=== PATIENT | male | born 1945 | race Caucasian/White ===

== ENCOUNTER → 2020-08-16 | Outpatient (CLI) | payer OTHER | LOC: MRI 10:35 | PROVIDERS: ATTEND Orthopaedic Surgery Sports Medicine | DX: S46.021A Laceration of muscle(s) and tendon(s) of the rotator cuff of right shoulder, initial encounter (principal); M25.511 Pain in right shoulder; R60.9 Edema, unspecified; X58.XXXA Exposure to other specified factors, initial encounter; Y93.89 Activity, other specified; Y92.89 Other specified places as the place of occurrence of the external cause; Y99.8 Other external cause status ==